=== PATIENT | female | born 1995 | race Caucasian/White ===

== ENCOUNTER 2017-02-14 04:48 | Emergency (ER) | payer OTHER ==
[~2017-02-14] VITALS: Ht 162.6 cm; Wt 52.2 kg
[~2017-02-14 04:48] MED LIST: CEPH500 PO; CLIN300 PO; HYDACE5325 PO; IBUP800 PO; LORA.5 PO; OXYACE5T PO; PARO20 PO; PENVK500 PO
[2017-02-14 05:30] LABS: Blood, Urine 1+ (Neg); Glucose Qualitative, Urine Neg (Neg); Ketones, Urine Neg (Neg); Leukocyte Esterase, Urine 3+ (Neg); Nitrite, Urine Neg (Neg); Protein, Urine 1+ (Neg); Specific Gravity, Urine 1.025 (1.003-1.022); Urobilinogen, Urine 2+ (Normal)
[2017-02-14 05:50] LABS: BASOPHILS ABSOLUTE AUTO 0.03 K/mm3 (0.00-0.23); BASOPHILS PERCENT AUTO 0 % (0-2); EOSINOPHILS ABSOLUTE AUTO 0.21 K/mm3 (0.00-0.68); EOSINOPHILS PERCENT AUTO 2 % (0-6); Hematocrit 40.7 % (33.0-51.0); Hemoglobin 14.2 g/dL (11.5-16.0); IMMATURE GRAN ABSOLUTE AUTO 0.02 K/mm3 (0.00-0.10); IMMATURE GRAN PERCENT AUTO 0 % (0-1); LYMPHOCYTES ABSOLUTE AUTO 3.17 K/mm3 (0.84-5.20); LYMPHOCYTES PERCENT AUTO 31 % (21-46); MONOCYTES ABSOLUTE AUTO 0.48 K/mm3 (0.16-1.47); MONOCYTES PERCENT AUTO 5 % (4-13); Mean Corpuscular HGB 30.3 pg (26.0-34.0); Mean Corpuscular HGB Conc 34.9 g/dL (31.5-36.5); Mean Corpuscular Volume 87 fL (80-100); Mean Platelet Volume 11.1 fL (9.1-12.4); NEUTROPHILS ABSOLUTE AUTO 6.26 K/mm3 (1.96-9.15); NEUTROPHILS PERCENT AUTO 62 % (41-73); Platelet Count 181 K/mm3 (150-400); RDW Coefficient Variation 12.2 % (11.7-14.2); RDW Standard Deviation 38.6 fL (35.1-46.3); Red Blood Cell Count 4.69 M/mm3 (3.80-5.20); White Blood Cell Count 10.17 K/mm3 (4.00-11.30)
[2017-02-14 05:55] LABS: Appearance, Urine Hazy (Clear); Bilirubin, Urine 1+ (Neg); Color, Urine Yellow (P-Yellow)
[2017-02-14 05:56] LABS: Bacteria Few /hpf; Mucus Heavy (0-Heavy); Red Blood Cells, Urine 0-2 /hpf (0-2); Squamous Epithelial Cells Mod /hpf (Few); White Blood Cells, Urine TNTC /hpf (0-5)
[2017-02-14 05:57] LABS: Calcium Oxalate Crystals Many /hpf
[2017-02-14 06:09] LABS: Alanine Aminotransfer (ALT/SGP 17 U/L (12-78); Albumin, Blood 4.3 g/dL (3.4-5.0); Albumin/Globulin Ratio 1.2 (0.8-1.8); Alk Phos 73 U/L (50-136); Anion Gap 7 mmol/L (6-16); Aspartate Aminotrans (AST/SGOT 17 U/L (12-37); Bilirubin, Total 0.5 mg/dL (0.1-1.0); Blood Urea Nitrogen 11 mg/dL (8-24); Bun/Creatinine Ratio 18.7 (12.0-20.0); CO2, Blood 26 mmol/L (21-32); Calcium, Blood 9.6 mg/dL (8.5-10.1); Chloride, Blood 108 mmol/L (98-108); Creatinine, Blood 0.59 mg/dL (0.40-1.00); Globulin, Blood 3.7 g/dL (2.2-4.0); Glomerular Filtration Rate >60 (60-); Glucose, Blood 103 mg/dL (70-99); Potassium, Blood 3.4 mmol/L (3.5-5.5); Sodium, Blood 141 mmol/L (136-145)
[2017-02-14] MEDS ORDERED: CEPH500 PO (06:19)
[2017-12-28] MEDS ORDERED: PERIDEX15 ML MM (15:34)
[2017-12-28] MEDS ORDERED: CLIN300 PO (15:34)
[2017-12-28] MEDS ORDERED: ONDA4ODT MM (15:34)
== END 2017-02-14 06:59 | disposition home or self-care (01) ==
LOC: ER 04:48
PROVIDERS: Emergency Medicine
DX: N12 Tubulo-interstitial nephritis, not specified as acute or chronic (principal); F41.9 Anxiety disorder, unspecified; F17.210 Nicotine dependence, cigarettes, uncomplicated; Z88.0 Allergy status to penicillin
CPT/HCPCS: 36415; 80053; 81001; 81025; 83690; 85025; 87086; 87147; 96361; 96374; 96375; 99283; J0696; J2405; J7030

== ENCOUNTER → 2021-08-15 | Outpatient (CLI) | payer SELFPAY ==
[~2021-08-15] MED LIST changes: +ONDA4ODT MM; +PERIDEX15 ML MM
== END | disposition home or self-care (01) ==
LOC: LAB SHORT 09:30
DX: R30.0 Dysuria (principal)
CPT/HCPCS: 87086

== ENCOUNTER 2023-08-16 09:10 | Emergency (ER) | payer OTHER ==
[~2023-08-16] VITALS: Ht 165.1 cm; Wt 65.8 kg
[~2023-08-16 09:10] MED LIST changes: +ACET325; +ACET500 PO; +Cranberry400 MG PO; +DOCU100 PO; +IBUP200 PO; +IBUP600 PO; +IRON PO; +MULVITA PO
[2023-08-16] MEDS ORDERED: NS 1,000 ML IV SCH (10:00)
[2023-08-16] MEDS ORDERED: Methocarbamol 500 MG Tab PO ONE (10:00)
[2023-08-16 10:05] LABS: BASOPHILS ABSOLUTE AUTO 0.04 K/mm3 (0.00-0.23); BASOPHILS PERCENT AUTO 1 % (0-2); EOSINOPHILS PERCENT AUTO 1 % (0-6); Hematocrit 38.9 % (33.0-51.0); Hemoglobin 13.2 g/dL (11.5-16.0); IMMATURE GRAN ABSOLUTE AUTO 0.02 K/mm3 (0.00-0.10); IMMATURE GRAN PERCENT AUTO 0 % (0-1); LYMPHOCYTES ABSOLUTE AUTO 1.17 K/mm3 (0.84-5.20); LYMPHOCYTES PERCENT AUTO 16 % (21-46); MONOCYTES ABSOLUTE AUTO 0.53 K/mm3 (0.16-1.47); MONOCYTES PERCENT AUTO 7 % (4-13); Mean Corpuscular HGB 30.6 pg (26.0-34.0); Mean Corpuscular HGB Conc 33.9 g/dL (31.5-36.5); Mean Corpuscular Volume 90 fL (80-100); Mean Platelet Volume 10.4 fL (9.1-12.4); NEUTROPHILS ABSOLUTE AUTO 5.57 K/mm3 (1.96-9.15); NEUTROPHILS PERCENT AUTO 75 % (41-73); Platelet Count 185 K/mm3 (150-400); RDW Coefficient Variation 11.9 % (11.7-14.2); RDW Standard Deviation 39.5 fL (35.1-46.3); Red Blood Cell Count 4.32 M/mm3 (3.80-5.20); White Blood Cell Count 7.43 K/mm3 (4.00-11.30)
[2023-08-16 10:06] VITALS: BP 137/82
[2023-08-16 10:15] LABS: Source, Urine Clean Catch
[2023-08-16 10:21] LABS: Appearance, Urine Clear (Clear); Bilirubin, Urine Neg (Neg); Blood, Urine 4+ (Neg); Glucose Qualitative, Urine Neg (Neg); Ketones, Urine Neg (Neg); Leukocyte Esterase, Urine 3+ (Neg); Nitrite, Urine Neg (Neg); Protein, Urine Neg (Neg); Urobilinogen, Urine NORM (Normal); pH, Urine 6.5 (5.0-8.0)
[2023-08-16 10:24] LABS: Bilirubin, Total 0.9 mg/dL (0.1-1.0); Calcium, Blood 8.7 mg/dL (8.5-10.1); Creatinine, Blood 0.62 mg/dL (0.40-1.00); Globulin, Blood 3.9 g/dL (2.2-4.0); Potassium, Blood 3.9 mmol/L (3.5-5.5); Total Protein, Blood 7.9 g/dL (6.4-8.2)
[2023-08-16 10:40] LABS: Color, Urine Pale Yellow (P-Yellow)
[2023-08-16 10:43] LABS: White Blood Cells, Urine 25-50 /hpf (0-5)
[2023-08-16 10:46] LABS: Squamous Epithelial Cells Few /hpf (Few)
[2023-08-16 10:47] LABS: Bacteria Mod /hpf
[2023-08-16] MEDS ORDERED: CefTRIAXone Sodium 1,000 MG in NS 100 ML IV ONE (11:25)
[2023-08-16] MEDS ORDERED: Robaxin750 MG PO (11:26)
[2023-08-16] MEDS ORDERED: IBUP600 PO (11:26)
[2023-08-16] MEDS ORDERED: CEPH500 PO (11:26)
== END 2023-08-16 12:06 | disposition home or self-care (01) ==
LOC: ER 09:10
PROVIDERS: Emergency Medicine; Physician Assistant
DX: N12 Tubulo-interstitial nephritis, not specified as acute or chronic (principal); N30.01 Acute cystitis with hematuria; F17.200 Nicotine dependence, unspecified, uncomplicated; Z79.899 Other long term (current) drug therapy; Z88.0 Allergy status to penicillin
CPT/HCPCS: 74177; 80053; 81001; 85025; 87077; 87086; 87186; 96361; 96365-59; 99284-25; A9270; J0696; J7030; Q9967

== ENCOUNTER 2023-11-07 10:53 | Emergency (ER) | payer OTHER ==
[~2023-11-07] VITALS: Ht 165.1 cm; Wt 65.8 kg
[~2023-11-07 10:53] MED LIST changes: +Robaxin750 MG PO
[2023-11-07 11:00] VITALS: BP 147/95
[2023-11-07 11:47] LABS: Source, Urine Clean Catch
[2023-11-07 12:14] LABS: Appearance, Urine Clear (Clear); Bilirubin, Urine Neg (Neg); Blood, Urine 1+ (Neg); Color, Urine Yellow (P-Yellow); Glucose Qualitative, Urine Neg (Neg); Ketones, Urine Neg (Neg); Leukocyte Esterase, Urine 1+ (Neg); Nitrite, Urine Neg (Neg); Protein, Urine Neg (Neg); Specific Gravity, Urine 1.025 (1.003-1.022); Urobilinogen, Urine NORM (Normal)
[2023-11-07 13:24] LABS: Bacteria Few /hpf; Squamous Epithelial Cells Few /hpf (Few)
[2023-11-07] MEDS ORDERED: Ketorolac Tromethamine 15mg Vial IM ONE (13:25)
[2023-11-07] MEDS ORDERED: Pyridium100 MG PO (14:23)
[2023-11-07] MEDS ORDERED: MACRODANTIN100 M1 PO (14:23)
== END 2023-11-07 14:32 | disposition home or self-care (01) ==
LOC: ER 10:53
PROVIDERS: Student in an Organized Health Care Education/Training Program
DX: N39.0 Urinary tract infection, site not specified (principal); F17.200 Nicotine dependence, unspecified, uncomplicated
CPT/HCPCS: 76857; 81001; 87077; 87086; 87186; 96372; 99284-25; J1885

== ENCOUNTER 2024-06-11 21:10 | Emergency (ER) | payer OTHER ==
[~2024-06-11] VITALS: Ht 165.1 cm; Wt 63.5 kg
[~2024-06-11 21:10] MED LIST changes: +MACRODANTIN100 M1 PO; +Pyridium100 MG PO
[2024-06-11 21:16] VITALS: BP 130/82
[2024-06-11] MEDS ORDERED: FentaNYL Citrate 50 MCG/ML 2 ML Injection IV ONE (21:25)
[2024-06-11] MEDS ORDERED: Robaxin750 MG PO (22:07)
== END 2024-06-11 22:18 ==
LOC: ER 21:10
DX: S63.502A Unspecified sprain of left wrist, initial encounter (principal); F10.90 Alcohol use, unspecified, uncomplicated; Z88.0 Allergy status to penicillin; Z79.899 Other long term (current) drug therapy; W17.81XA Fall down embankment (hill), initial encounter
CPT/HCPCS: 73090; 73100; 96374; 99284-25; J3010